=== PATIENT | male | born 1950 | race Caucasian/White ===

== ENCOUNTER 2020-12-03 20:56 | Emergency (ER) | payer MEDICARE, BC ==
[2020-12-03] MEDS ORDERED: Diphtheria,Pertussis(Acell),Tetanus Vaccine 0.5 ML Syringe IM ONE (21:07)
[2020-12-03] MEDS ORDERED: Cephalexin 500 MG Cap PO ONE (21:07)
--- NOTE | 2020-12-03 21:12 | EDM.PDOC ---
ED HPI GENERAL MEDICAL PROBLEM - General Chief Complaint: Laceration Stated Complaint: LT HAND INJURY Time Seen by Provider: 12/03/20 20:58 Source of Information: Reports: Patient, RN Notes Reviewed History Limitations: Reports: No Limitations - History of Present Illness INITIAL COMMENTS - FREE TEXT/NARRATIVE: Patient is a 70-year-old male presenting to the emergency department after excellently stabbing his hand with a screwdriver. He has a puncture wound on the ventral radial aspect of his whose left hand. He states that he felt the screwdriver hit his bone. He is unsure when his last tetanus vaccination was. Left Hand Pain Score (Numeric/FACES): 5 - Related Data Allergies Allergy/AdvReac Type Severity Reaction Status Date / Time No Known Allergies Allergy Verified 12/03/20 21:18 Home Meds: Home Meds cephALEXin [Keflex] 500 mg PO Q6H #19 cap 12/03/20 [Rx] Past Medical History - Past Health History Medical/Surgical History: Denies Medical/Surgical History ED ROS GENERAL - Review of Systems Review Of Systems: Comprehensive ROS is negative, except as noted in HPI. ED EXAM, SKIN/RASH Exam: See Below Exam Limited By: No Limitations General Appearance: Alert, WD/WN, No Apparent Distress Respiratory/Chest: No Respiratory Distress, Lungs Clear, Normal Breath Sounds, No Accessory Muscle Use, Chest Non-Tender Cardiovascular: Normal Peripheral Pulses, Regular Rate, Rhythm, No Edema, No Gallop, No JVD, No Murmur, No Rub Extremities: Other (0.25 cm puncture wound to radial ventral aspect of the left hand. No active bleeding. Patient is full range of motion of the joints and full strength to flexion extension.) Neurological: Alert, Oriented, CN II-XII Intact, Normal Cognition, Normal Gait, Normal Reflexes, No Motor/Sensory Deficits Psychiatric: Normal Affect, Normal Mood Course - Vital Signs Last Recorded V/S: Last Vital Signs Temp 98.0 F 12/03/20 21:07 Pulse 76 12/03/20 21:07 Resp 12 12/03/20 21:07 BP Pulse Ox 94 L 12/03/20 21:07 - Orders/Labs/Meds Orders: Active Orders 24 hr Category Date Time Status Vaccines to be Administered [RC] PER UNIT ROUTINE Care 12/03/20 21:07 Active Hand Comp Min 3V Lt [CR] Stat Exams 12/03/20 21:05 Taken Meds: Medications Discontinued Medications Generic Name Dose Route Start Last Admin Trade Name Bashir PRN Reason Stop Dose Admin Cephalexin 500 mg 12/03/20 21:07 12/03/20 21:40 Keflex PO 12/03/20 21:08 500 mg ONETIME ONE Administration Diphtheria/Tetanus/Acell Pertussis 0.5 ml 12/03/20 21:07 12/03/20 21:40 Boostrix IM 12/03/20 21:08 0.5 ml .ONCE ONE Administration - Re-Assessments/Exams Free Text/Narrative Re-Assessment/Exam: Patient is a 70-year-old male presenting to the emergency department with complaints of a puncture wound to his left hand after accidentally stabbing himself with a screwdriver. On exam, he has a 0.25 cm puncture wound to the ventral radial aspect of the left hand. There is no active bleeding. He states that he fell to the screwdriver hit the bone. We will complete an x-ray of the left hand. I have also ordered update his Tdap. Infection prophylaxis with Keflex will be started. 12/03/20 22:09 X-ray of the left hand showed no acute abnormalities. Wound has been cleansed and covered with antibiotic ointment and nonstick Telfa. I will send a presc ription for Keflex discharge instructions as documented. Departure - Departure Time of Disposition: 22:09 Disposition: Home, Self-Care 01 Condition: Good Clinical Impression: Puncture wound, hand Qualifiers: Encounter type: initial encounter Foreign body presence: without foreign body Laterality: left Qualified Code(s): S61.432A - Puncture wound without foreign body of left hand, initial encounter - Discharge Information *PRESCRIPTION DRUG MONITORING PROGRAM REVIEWED*: No *COPY OF PRESCRIPTION DRUG MONITORING REPORT IN PATIENT ANA LAURA: No Prescriptions: cephALEXin [Keflex] 500 mg PO Q6H #19 cap Referrals: Clay Banuelos Jr, MD [Primary Care Provider] - Forms: ED Department Discharge Additional Instructions: You were seen in the emergency department today for puncture wound to your left hand. X-rays are completed and found to be normal. While in the ER, you received a tetanus vaccination as well as your first dose of Keflex which is an antibiotic. Prescription for Keflex has been sent to [facility]. Take this medication as prescribed in its entirety to prevent infection. Keep the wound clean and dry. Return to ER as needed. Sepsis Event Note (ED) - Focused Exam Vital Signs: Vital Signs Temp Pulse Resp Pulse Ox 12/03/20 21:07 98.0 F 76 12 94 L - My Orders Last 24 Hours: My Active Orders 12/03/20 21:05 Hand Comp Min 3V Lt [CR] Stat 12/03/20 21:07 Vaccines to be Administered [RC] PER UNIT ROUTINE - Assessment/Plan Last 24 Hours: My Active Orders 12/03/20 21:05 Hand Comp Min 3V Lt [CR] Stat 12/03/20 21:07 Vaccines to be Administered [RC] PER UNIT ROUTINE
--- NOTE | 2020-12-04 08:35 | CR ---
Left hand: 3 views of the left hand were obtained. Comparison: No prior hand exam is available. Deformity is noted of the fifth metacarpal which appears old. Slight degenerative change is noted of the radiocarpal joint. Moderate joint space narrowing is noted within the CMC joint of the thumb. Mild degenerative change is scattered within the DIP joints of the fingers as well as IP joint of the thumb. Joint space narrowing is noted within the MCP joint of the thumb. Mild joint space narrowing is scattered with the MCP joints of the fingers. No radiopaque foreign object is seen. No acute fracture or dislocation is noted. Impression: 1. 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 2. Degenerative change as noted above. 3. Nothing acute is appreciated on left hand study. Diagnostic code #2
== END 2020-12-03 22:15 | disposition home or self-care (01) ==
LOC: JD.ED 20:56
DX: S61.432A Puncture wound without foreign body of left hand, initial encounter (principal); Z23 Encounter for immunization; W27.0XXA Contact with workbench tool, initial encounter
CPT/HCPCS: 73130; 90471; 90715; 99283; A9270; 99284

== ENCOUNTER 2024-10-05 10:44 | Emergency (ER) | payer MEDICARE ==
[2024-10-05] MEDS: Lidocaine 1% 10 ML MDV INJECT ONE (12:12)
== END 2024-10-05 13:52 | disposition home or self-care (01) ==
LOC: JD.ED 10:44
DX: T82.838A Hemorrhage due to vascular prosthetic devices, implants and grafts, initial encounter (principal); Z48.00 Encounter for change or removal of nonsurgical wound dressing; E78.00 Pure hypercholesterolemia, unspecified; F17.210 Nicotine dependence, cigarettes, uncomplicated; Z79.82 Long term (current) use of aspirin; Z79.899 Other long term (current) drug therapy
CPT/HCPCS: 12001; 71045; 99283; J1642; J3490

== ENCOUNTER 2025-06-02 16:52 | Inpatient (IN) | payer MEDICARE ==
[2025-06-02] MEDS ORDERED: Sodium Chloride 0.9% 10 ML Syringe FLUSH PRN (17:27)
[2025-06-02 18:06] LABS: MEAN PLATELET VOLUME 8.8 fl (9.4-12.4); NRBC ABSOLUTE 0.00 (0.00-0.02); NRBC PERCENT 0.0 % (0.0-0.2); PLATELET COUNT,PLT 213 K/mm3 (150-400); RED BLOOD CELL COUNT 4.29 M/mm3 (4.52-5.90); WHITE BLOOD CELL COUNT,WBC 8.00 K/mm3 (3.9-11.3)
[2025-06-02 18:27] LABS: INR 0.99
[2025-06-02 18:28] LABS: LACTIC ACID 1.1 mmol/L (0.4-2.0)
[2025-06-02 18:36] LABS: A/G RATIO 1.1 (1-2); ALANINE AMINOTRANSFERASE,ALT 20.0 U/L (16-63); ASPARTATE AMNIOTRANSFERASE,AST 19.0 U/L (15-37); BILIRUBIN TOTAL 0.6 mg/dL (0.2-1.0); BLOOD UREA NITROGEN,BUN 20.0 mg/dL (7-18); CARBON DIOXIDE,CO2 29.0 mEq/L (21-32); CHLORIDE,CL 106.0 mEq/L (98-107); CREATININE 1.3 mg/dL (0.7-1.3); EST CRCL DRUG DOSING (CG) 50.0 mL/min; ESTIMATED GFR 58.0 mL/min (>60); GLUCOSE RANDOM 117.0 mg/dL (70-99); POTASSIUM,K 4.1 mEq/L (3.5-5.1); PROTEIN TOTAL,TP 6.8 g/dl (6.4-8.2); SODIUM,NA 143.0 mEq/L (136-145)
[2025-06-02] MEDS: methylPREDNISolone Sodium Succinate 125 MG/2 ML SDV IVPUSH ONE (19:15)
[2025-06-02 19:20] LABS: BAND PERCENT MAN 1 % (0-10); BASOPHILS PERCENT MAN 0 (0.2-1.2); EOSINOPHILS PERCENT MAN 1 % (0.8-7.0); LYMPHOCYTES % ATYPICAL MANUAL 0 %; LYMPHOCYTES PERCENT MAN 18 % (20-40); MONOCYTES PERCENT MAN 8 % (2-10); PLATELET COUNT ESTIMATE ADEQUATE
[2025-06-02 20:02] LABS: O2 SATURATION ARTERIAL 100.0 % (96.0-97.0); PCO2 ARTERIAL 37.0 mmHg (35.0-45.0); PO2 ARTERIAL 100.0 mmHg (80.0-100.0)
[2025-06-02 21:25] LABS: APPEARANCE,URINE CLEAR (Clear); GLUCOSE,URINE NEGATIVE (Negative); OCCULT BLOOD,URINE 2+ (Negative)
[2025-06-02 21:39] LABS: SQUAMOUS EPITHELIAL CELLS,UR 0-5 /hpf (0-5)
[2025-06-03 07:52] LABS: BASOPHILS ABSOLUTE AUTO 0.0 K/mm3 (0.0-0.2); BASOPHILS PERCENT AUTO 0.2 % (0.0-1.0); EOSINOPHILS ABSOLUTE AUTO 0.0 K/mm3 (0.0-0.4); EOSINOPHILS PERCENT AUTO 0.2 % (0.0-6.0); IMMATURE GRAN ABSOLUTE AUTO 0.06 K/mm3 (0.00-0.05); IMMATURE GRAN PERCENT AUTO 0.7 % (0.0-0.4); LYMPHOCYTES ABSOLUTE AUTO 0.9 K/mm3 (1.0-4.8); LYMPHOCYTES PERCENT AUTO 10.2 % (24.0-44.0); MEAN PLATELET VOLUME 9.5 fl (9.4-12.4); MONOCYTES ABSOLUTE AUTO 0.5 K/mm3 (0.0-0.8); MONOCYTES PERCENT AUTO 5.4 % (0.0-8.0); NEUTROPHILS ABSOLUTE AUTO 7.3 K/mm3 (1.8-7.7); NEUTROPHILS PERCENT AUTO 83.3 % (41.0-71.0); NRBC ABSOLUTE 0.00 (0.00-0.02); NRBC PERCENT 0.0 % (0.0-0.2); PLATELET COUNT,PLT 173 K/mm3 (150-400); RED BLOOD CELL COUNT 4.92 M/mm3 (4.52-5.90); WHITE BLOOD CELL COUNT,WBC 8.82 K/mm3 (3.9-11.3)
[2025-06-03 08:09] LABS: A/G RATIO 0.9 (1-2); ALANINE AMINOTRANSFERASE,ALT 13.0 U/L (16-63); ASPARTATE AMNIOTRANSFERASE,AST 13.0 U/L (15-37); BILIRUBIN TOTAL 0.6 mg/dL (0.2-1.0); BLOOD UREA NITROGEN,BUN 22.0 mg/dL (7-18); CARBON DIOXIDE,CO2 24.0 mEq/L (21-32); CHLORIDE,CL 109.0 mEq/L (98-107); CREATININE 1.1 mg/dL (0.7-1.3); EST CRCL DRUG DOSING (CG) 57.63 mL/min; ESTIMATED GFR 71.0 mL/min (>60); GLUCOSE RANDOM 166.0 mg/dL (70-99); POTASSIUM,K 3.9 mEq/L (3.5-5.1); PROTEIN TOTAL,TP 6.4 g/dl (6.4-8.2); SODIUM,NA 143.0 mEq/L (136-145)
[2025-06-03] MEDS ORDERED: Ondansetron 4 MG/2 ML SDV IVPUSH PRN (09:03)
== END 2025-06-03 13:01 | disposition home or self-care (01) | DRG 192 ==
LOC: JD.ED 16:52 → JD.MS 19:37
PROVIDERS: ADMIT Family Medicine; ATTEND Family Medicine
DX: J44.1 Chronic obstructive pulmonary disease with (acute) exacerbation (principal); E78.00 Pure hypercholesterolemia, unspecified; E86.0 Dehydration; N18.2 Chronic kidney disease, stage 2 (mild); I12.9 Hypertensive chronic kidney disease with stage 1 through stage 4 chronic kidney disease, or unspecified chronic kidney disease; G30.9 Alzheimer's disease, unspecified; F17.200 Nicotine dependence, unspecified, uncomplicated; F01.C0 Vascular dementia, severe, without behavioral disturbance, psychotic disturbance, mood disturbance, and anxiety; F02.80 Dementia in other diseases classified elsewhere, unspecified severity, without behavioral disturbance, psychotic disturbance, mood disturbance, and anxiety; F10.11 Alcohol abuse, in remission; J43.2 Centrilobular emphysema; I25.10 Atherosclerotic heart disease of native coronary artery without angina pectoris; R73.9 Hyperglycemia, unspecified; R09.02 Hypoxemia; F32.89 Other specified depressive episodes; Z79.899 Other long term (current) drug therapy; Z90.49 Acquired absence of other specified parts of digestive tract; Z85.118 Personal history of other malignant neoplasm of bronchus and lung; Z98.890 Other specified postprocedural states; Z79.82 Long term (current) use of aspirin; Z95.5 Presence of coronary angioplasty implant and graft
CPT/HCPCS: 36415; 36600; 71045; 71045-26; 80053; 81001; 82803; 83036; 83605; 84484; 85007; 85025; 85027; 85379; 85610; 86140; 87040; 93005; 93010; 94640; 94760; 96365; 96375; 97116-GP; 97162-GP; 97530-GP; 99285; 99285-25; A9270-GY; J1650; J2543; J2919; J7030

== ENCOUNTER 2025-08-12 16:57 | Emergency (ER) | payer MEDICARE ==
[2025-08-12 19:04] LABS: BASOPHILS ABSOLUTE AUTO 0.1 K/mm3 (0.0-0.2); BASOPHILS PERCENT AUTO 0.7 % (0.0-1.0); EOSINOPHILS ABSOLUTE AUTO 0.2 K/mm3 (0.0-0.4); EOSINOPHILS PERCENT AUTO 3.1 % (0.0-6.0); IMMATURE GRAN ABSOLUTE AUTO 0.01 K/mm3 (0.00-0.05); IMMATURE GRAN PERCENT AUTO 0.1 % (0.0-0.4); LYMPHOCYTES ABSOLUTE AUTO 1.6 K/mm3 (1.0-4.8); LYMPHOCYTES PERCENT AUTO 23.5 % (24.0-44.0); MEAN PLATELET VOLUME 9.1 fl (9.4-12.4); MONOCYTES ABSOLUTE AUTO 0.5 K/mm3 (0.0-0.8); MONOCYTES PERCENT AUTO 7.7 % (0.0-8.0); NEUTROPHILS ABSOLUTE AUTO 4.5 K/mm3 (1.8-7.7); NEUTROPHILS PERCENT AUTO 64.9 % (41.0-71.0); NRBC ABSOLUTE 0.00 (0.00-0.02); NRBC PERCENT 0.0 % (0.0-0.2); PLATELET COUNT,PLT 176 K/mm3 (150-400); RED BLOOD CELL COUNT 4.32 M/mm3 (4.52-5.90); WHITE BLOOD CELL COUNT,WBC 6.86 K/mm3 (3.9-11.3)
[2025-08-12 19:06] LABS: APPEARANCE,URINE CLEAR (Clear); GLUCOSE,URINE NEGATIVE (Negative); OCCULT BLOOD,URINE NEGATIVE (Negative)
[2025-08-12 19:38] LABS: A/G RATIO 1.1 (1-2); ALANINE AMINOTRANSFERASE,ALT 28 U/L (16-63); ASPARTATE AMNIOTRANSFERASE,AST 28 U/L (15-37); BILIRUBIN TOTAL 0.3 mg/dL (0.2-1.0); BLOOD UREA NITROGEN,BUN 28 mg/dL (7-18); CARBON DIOXIDE,CO2 28 mEq/L (21-32); CHLORIDE,CL 104 mEq/L (98-107); CREATININE 1.3 mg/dL (0.7-1.3); ESTIMATED GFR 58 mL/min (>60); GLUCOSE RANDOM 122 mg/dL (70-99); POTASSIUM,K 3.6 mEq/L (3.5-5.1); PROTEIN TOTAL,TP 6.7 g/dl (6.4-8.2); SODIUM,NA 141 mEq/L (136-145)
[2025-08-12 19:41] LABS: ETHANOL BLOOD MEDICAL 0.00 gm% (0.00)
[2025-08-12] MEDS ORDERED: Sodium Chloride 0.9% 10 ML Syringe FLUSH PRN (19:54)
[2025-08-12] MEDS: Iopamidol 755 Mg/ML 100 ML Bottle IVPUSH ONE (20:15)
[2025-08-12] MEDS: Sodium Chloride 0.9% 10 ML Syringe FLUSH PRN (20:15)
[2025-08-12 20:59] LABS: CORONAVIRUS COVID-19 NAA NEGATIVE (NEGATIVE); INFLUENZA A NAA NEGATIVE (NEGATIVE); RESPIRATORY SYNCYTIAL VIR NAA NEGATIVE (NEGATIVE)
== END 2025-08-12 21:00 | disposition home or self-care (01) ==
LOC: JD.ED 16:57
DX: G30.9 Alzheimer's disease, unspecified (principal); F02.80 Dementia in other diseases classified elsewhere, unspecified severity, without behavioral disturbance, psychotic disturbance, mood disturbance, and anxiety; F01.50 Vascular dementia, unspecified severity, without behavioral disturbance, psychotic disturbance, mood disturbance, and anxiety; R26.9 Unspecified abnormalities of gait and mobility; Z95.1 Presence of aortocoronary bypass graft; Z79.82 Long term (current) use of aspirin; Z79.899 Other long term (current) drug therapy; Z87.891 Personal history of nicotine dependence
CPT/HCPCS: 36415; 70450; 70496; 70498; 80053; 80307; 81003; 85025; 86140; 87637; 99284; Q9967